=== PATIENT | male | born 1965 | race Caucasian/White ===

== ENCOUNTER 2016-10-04 16:25 | Emergency (ER) | payer MEDICARE, OTHER | END 2016-10-04 22:49 | disposition home or self-care (01) | LOC: ER 16:25 | DX: K59.00 Constipation, unspecified (principal); R11.0 Nausea; I10 Essential (primary) hypertension; E11.9 Type 2 diabetes mellitus without complications; E66.9 Obesity, unspecified; E07.9 Disorder of thyroid, unspecified; Z88.2 Allergy status to sulfonamides; Z90.49 Acquired absence of other specified parts of digestive tract; Z98.84 Bariatric surgery status; Z79.899 Other long term (current) drug therapy; Z79.4 Long term (current) use of insulin; Z88.0 Allergy status to penicillin | CPT/HCPCS: 36415; 96361; 96374; 96375 ==

== ENCOUNTER 2016-10-05 22:55 | Emergency (ER) | payer MEDICARE, OTHER | END 2016-10-06 10:19 | disposition short-term general hospital (02) | LOC: ER 22:55 | DX: E87.2 Acidosis (principal); R10.84 Generalized abdominal pain; E11.65 Type 2 diabetes mellitus with hyperglycemia; R11.0 Nausea; E66.9 Obesity, unspecified; I10 Essential (primary) hypertension; Z88.0 Allergy status to penicillin; Z88.2 Allergy status to sulfonamides; Z79.899 Other long term (current) drug therapy | CPT/HCPCS: 36415; 51702; 80307; 96361; 96365; 96366; 96368; 96375; 96376; G0480; J3370; J7070 ==

== ENCOUNTER 2016-10-31 22:34 | Emergency (ER) | payer MEDICARE, OTHER | END 2016-10-31 23:05 | disposition home or self-care (01) | LOC: ER 22:34 | DX: J02.9 Acute pharyngitis, unspecified (principal); E11.9 Type 2 diabetes mellitus without complications; I10 Essential (primary) hypertension; E07.9 Disorder of thyroid, unspecified; Z88.0 Allergy status to penicillin; Z90.49 Acquired absence of other specified parts of digestive tract; Z90.89 Acquired absence of other organs; Z88.2 Allergy status to sulfonamides; Z79.899 Other long term (current) drug therapy; Z98.84 Bariatric surgery status; Z79.4 Long term (current) use of insulin | CPT/HCPCS: 87651 ==